=== PATIENT | male | born 1950 | race Caucasian/White ===

== ENCOUNTER → 2020-05-16 09:17 | Outpatient (CLI) | payer OTHER, SELFPAY ==
--- NOTE | 2020-05-16 09:20 | DI.MRI.S_ITS ---
PROCEDURE: MR PELIS WO/W CON INDICATIONS: prostate cancer TECHNIQUE: Coronal HASTE, axial T1 FSE with fat saturation, 3-plane nonbreath-hold T2 FSE. After the administration of contrast, dynamic axial, delayed axial and coronal VIBE or 2-D FLASH with fat saturation through the pelvis. Optional diffusion weighted imaging and ADC may be performed. COMPARISON: None. FINDINGS: Image quality: Diffusion weighted and dynamic contrast enhanced images are diagnostic. Prostate: Gland size is 6.1 x 5.2 x 4.3 cm; ellipsoid gland volume is 70.9 mL. Lesion size(s): Lesion 1: 0.7 x 0.6 x 0.6 cm Lesion 2: 2.8 x 2.2 x 2.4 Lesion 3 1.2 x 0.5 x 0.6 cm. Lesion 4: 1.2 x 0.9 x 1.6 cm Lesion location(s) (sector): Lesion 1: Right posterior transitional zone near the apex. Lesion 2: Left mid prostate transitional zone centrally. Lesion 3: Right posterolateral peripheral zone at the mid gland level Lesion 4: Right anterior mid gland to base transitional zone. Lesion description: Lesion 1: Indistinct ovoid hypo intensity. Lesion 2: Irregular, lobulated somewhat heterogeneous area of hypointensity. Lesion 3: Part lentiform, somewhat wedge-shaped area with indistinct margins on T2 imaging reminiscent of erased charcoal. Lesion 4: Moderately hypointense, ovoid partially circumscribed lesion. T2 weighted imaging (T2WI) morphology score: Lesion 1: Three Lesion 2: Five Lesion 3: Four Lesion 4: Four Diffusion weighted imaging (DWI) morphology score: Lesion 1: Two Lesion 2: Two Lesion 3: Three Lesion 4: Four Dynamic contrast enhancement (DCE): Lesion 1: Absent Lesion 2: Absent Lesion 3: Absent Lesion 4: Absent Lesion PI-RADS score: Lesion 1: PI-RADS three Lesion 2: PI-RADS four Lesion 3: PI-RADS three Lesion 4: PI-RADS four Genitourinary system: Bladder wall thickness is normal. Distal ureters are non distended. Bowel and peritoneum: No pathologic free pelvic fluid. Inferior colon and small bowel loops are normal in caliber. Nodes and vessels: No pelvic or inguinal adenopathy by size criteria. Iliac vessels are normal in caliber. Soft tissues: No inguinal hernias. Bones: Marrow demonstrates normal overall signal, without lesions to suggest metastases. IMPRESSION: 1. At least four prostate lesions are identified, two are considered PI-RADS four lesions. Please correlate with biopsy. 2. No adenopathy. 3. Prostatomegaly. Dictated by: Yamila Caceres M.D. on 05/16/2020 at 13:07 Approved by: Yamila Caceres M.D. on 05/16/2020 at 14:20
== END ==
PROVIDERS: Referring Provider Specialist; Visit Provider Specialist
DX: C61 Malignant neoplasm of prostate (principal)
CPT/HCPCS: 72197

== ENCOUNTER → 2021-05-30 08:03 | Outpatient (CLI) | payer MEDICARE, SELFPAY ==
[2021-05-30 09:32] LABS: Prostate Specific Antigen 4.05 ng/mL (0.10-4.00)
== END ==
PROVIDERS: Referring Provider Specialist; Visit Provider Specialist
DX: C61 Malignant neoplasm of prostate (principal)
CPT/HCPCS: 84153

== ENCOUNTER → 2021-12-01 12:06 | Outpatient (CLI) | payer MEDICARE, SELFPAY | PROVIDERS: Referring Provider Specialist; Visit Provider Specialist | DX: C61 Malignant neoplasm of prostate (principal) | CPT/HCPCS: 36415; 84153 ==

== ENCOUNTER → 2022-06-09 11:23 | Outpatient (CLI) | payer MEDICARE, SELFPAY ==
[2022-06-09 13:15] LABS: Prostate Specific Antigen 4.79 ng/mL (0.10-4.00)
== END ==
PROVIDERS: Referring Provider Specialist; Visit Provider Specialist
DX: C61 Malignant neoplasm of prostate (principal); N13.8 Other obstructive and reflux uropathy; R97.20 Elevated prostate specific antigen [PSA]
CPT/HCPCS: 36415; 51798; 81002; 84153; 99213

== ENCOUNTER → 2022-12-01 11:04 | Outpatient (CLI) | payer MEDICARE, SELFPAY ==
[2022-12-01 12:23] LABS: Prostate Specific Antigen 5.23 ng/mL (0.10-4.00)
== END ==
PROVIDERS: Referring Provider Specialist; Visit Provider Specialist
DX: C61 Malignant neoplasm of prostate (principal); N13.8 Other obstructive and reflux uropathy; R97.20 Elevated prostate specific antigen [PSA]
CPT/HCPCS: 36415; 51798; 81002; 84153; 99214

== ENCOUNTER → 2023-06-02 11:23 | Outpatient (CLI) | payer MEDICARE, SELFPAY | PROVIDERS: Referring Provider Specialist; Visit Provider Specialist | DX: C61 Malignant neoplasm of prostate (principal); R97.20 Elevated prostate specific antigen [PSA]; N13.8 Other obstructive and reflux uropathy | CPT/HCPCS: 36415; 84153 ==